=== PATIENT | male | born 1955 | race African-American/Black ===

== ENCOUNTER 2017-04-15 08:24 | Outpatient (CLI) | payer OTHER ==
--- NOTE | 2017-04-15 10:39 | Ultrasound Report ---
Renal ultrasound: Elevated renal labs. The right renal length is 9.6 cm and the left renal length is 10.3 cm. The parenchymal echogenicity of both kidneys is slightly increased. There is no evidence of renal mass, calculus, or hydronephrosis. Imaging of the urinary bladder is unremarkable. Impression: Mildly echogenic kidneys suggestive of medical renal disease.
== END 2017-04-15 08:25 | disposition home or self-care (01) ==
LOC: SPVWC 08:24
PROVIDERS: ATTEND Internal Medicine
DX: R79.89 Other specified abnormal findings of blood chemistry (principal)
CPT/HCPCS: 76770